=== PATIENT | female | born 1985 ===

== ENCOUNTER 2023-02-11 01:01 | Emergency (ER) | payer SELFPAY ==
[~2023-02-11] VITALS: Ht 157.5 cm; Wt 70.5 kg
[2023-02-11 01:18] VITALS: BP 128/74
== END 2023-02-11 01:39 | disposition left against medical advice (07) ==
LOC: ER 01:01
DX: S05.92XA Unspecified injury of left eye and orbit, initial encounter (principal); Z53.21 Procedure and treatment not carried out due to patient leaving prior to being seen by health care provider; Y04.2XXA Assault by strike against or bumped into by another person, initial encounter; Y93.89 Activity, other specified; Y92.89 Other specified places as the place of occurrence of the external cause; Y99.8 Other external cause status